=== PATIENT | female | born 1975 | race Caucasian/White ===

== ENCOUNTER 2025-03-11 09:33 | Inpatient (IN) ==
--- NOTE | 2025-03-11 10:11 | Emergency Department Note ---
Impression & Plan Rectal mass, Anemia, Lymphadenopathy, Abdominal pain ED Provider Note NAME: ALYSSA CONRAD AGE: 50 SEX: F : 1975 ARRIVES VIA: Walk-In INFORMANT: Patient ED PROVIDER(S): Nahid Welsh DO CHIEF COMPLAINT: Abdominal pain HPI: Patient is a 50-year-old female with no significant past medical history who presents to the ER for lower abdominal pain and fullness as well as diarrhea. Symptoms have been present since October. They have been gradually getting worse. She denies any headache or change in vision. No chest pain or shortness of breath. No nausea, vomiting, or diarrhea. She had CT of the abdomen pelvis and chest performed as an outpatient and was referred in for an expedient workup by Dr. Mayo. ADDITIONAL HISTORY OBTAINED: Per HPI Chronic Medical/Social Conditions Affecting Care: Per HPI PAST MEDICAL HISTORY:See Below PAST SURGICAL HISTORY:See Below FAMILY HISTORY:See Below SOCIAL HISTORY:See Below HOME MEDICATIONS:See Below ALLERGIES:See Below VITALS:See Below PHYSICAL EXAMINATION: GENERAL: Sitting up in bed, alert, well appearing, well nourished, no distress, non-toxic EYE EXAM: normal conjunctiva. OROPHARYNX: no exudate, no erythema, lips, buccal mucosa, and tongue normal and mucous membranes are moist NECK: supple, no nuchal rigidity, no adenopathy, non-tender LUNGS: Clear to auscultation. Normal chest wall mechanics HEART: no murmurs, S1 normal and S2 normal ABDOMEN: abdomen soft, non-tender, normo-active bowel sounds, patient bowl firm mass in left lower quadrant, no rebound or guarding. UPPER EXTREMITIES: upper extremities are grossly normal. LOWER EXTREMITIES: No pitting edema. NEURO EXAM: Normal sensorium, cranial nerves II-XII grossly intact, normal speech, no gross weakness of arms, no gross weakness of legs. MEDICAL DECISION MAKING: Patient is a 50-year-old female who presents to the ER for the above-stated complaint. IV was established and blood work was obtained. Labs show mild leukocytosis of 11.9 thousand. Significant anemia at 7.7 which is likely secondary to the rectal mass likely causing a GI bleed although rectal was not performed. BMP with LFTs bilirubin and lipase is unremarkable. Patient was typed and crossed for 2 units with the anemia. Upon arrival external records were reviewed which included CTs performed here at [facility] as an outpatient which showed a large rectal mass pushing on the ureters and bladder. Discussed case with general surgery as well as gastroenterology and they recommended admission. Discussed case with the hospitalist Dr. Leiva for further evaluation management treatment. Consults/Care Managements Discussions: Per MDM Triage Nursing notes reviewed. Limited review of prior medical records performed Vital Signs: reviewed and remarkable for no significant abnormalities Differential diagnosis: Differential diagnoses includes but is not limited to gastritis, peptic ulcer disease, GERD, gallbladder disease, pancreatitis, small bowel obstruction, appendicitis, diverticulitis, hernia, urinary tract infection, torsion, perforation, trauma, infectious. ER treatment provided: See below Diagnostics interpreted by me include EKG and cardiac monitoring as listed below: -Cardiac Monitoring: An order was placed for continuous cardiac monitoring. The monitor shows a rate of 70 with sinus rhythm. -ECG: none -Laboratory studies:Interpreted by me as stated above in MDM and shown below. Imaging studies: Xrays: As interpreted by me:none CTs show: none Procedures:none Critical Care: None Past Med/Surg History Problem List (Updated 03/11/25 @ 13:51 by Nahid Welsh DO) Abdominal pain (Acute) Lymphadenopathy (Acute) Anemia (Acute) Anemia Metastasis to lung Rectal mass (Acute) Surgical History H/O wisdom tooth extraction Family History Grandmother (Maternal) Breast cancer Diabetes Grandfather (Paternal) Colorectal cancer Uncle Prostate cancer Father Diabetes Kidney disease Denies family history of Ovarian cancer Myocardial infarction Stroke Social History Smoking Status: Never smoker Second Hand Exposure: Yes; Do You Dip or Chew Tobacco: No; Hx Alcohol Use: Yes Alcohol Intake Frequency: Monthly or Less Hx Substance Use: No Preferred Language: Jamaican Communication Ability: Effective Visual Impairment: No Limitations Hearing Ability: Normal marital status: Current Living Situation: Spouse current occupational status: employed current occupation: freelancer How many Children do You have: 0 Feels Safe at Home: Yes Childhood Exposure to Second-Hand Smoke: Yes caffeine: Yes Dental Care, Regularly: No Physical Activity Frequency: Daily Seatbelt Use: always Sunscreen Use: Yes Do you think of yourself as: straight/heterosexual Allergies Allergies Allergy/AdvReac Type Severity Reaction Status Date / Time No Known Drug Allergies Allergy Verified 03/11/25 12:04 Home Meds Home Medications Medication Instructions Recorded Confirmed cyanocobalamin (vitamin B-12) 1,000 mcg PO DAILY 03/11/25 03/11/25 1,000 mcg tablet (Vitamin B-12) omega 8-zcg-jsi-fish oil 910 1 cap PO DAILY 03/11/25 03/11/25 mg-1,400 mg capsule (White Owl-3 Fish Oil) psyllium husk 3.4 gram/5.4 gram 1 tbsp PO DAILY 03/11/25 03/11/25 oral powder (Metamucil) Results & Data (ED) Vital Signs Vital Signs - 24 hr 03/11/25 09:34 03/11/25 09:55 03/11/25 10:10 Temperature 37.1 C Temperature Source Temporal Artery Scan Pulse Rate 96 H 73 75 Pulse Rate [Apical] Pulse Rhythm Regular Pulse Strength Normal Respiratory Rate 18 Respiratory Effort / Characteristics Non-Labored Respiratory Depth Normal Respiratory Pattern Regular Blood Pressure 147/96 H Blood Pressure [Right Arm] Blood Pressure Mean 113 Blood Pressure Mean [Right Arm] Blood Pressure Position Sitting Blood Pressure Position [Right Arm] Pulse Oximetry 100 100 Oxygen Delivery Method Room Air Room Air Sepsis Recent Fever Within 48 Hours No Sepsis New/Unexplained Change in Mental Status N/A Sepsis Action Taken by Nursing No Action Required 03/11/25 11:33 03/11/25 13:00 Temperature Temperature Source Pulse Rate Pulse Rate [Apical] 86 73 Pulse Rhythm Pulse Strength Respiratory Rate 16 20 Respiratory Effort / Characteristics Non-Labored Spontaneous Respiratory Depth Normal Respiratory Pattern Blood Pressure Blood Pressure [Right Arm] 138/103 H 141/83 H Blood Pressure Mean Blood Pressure Mean [Right Arm] 114 102 Blood Pressure Position Blood Pressure Position [Right Arm] Semi-fowlers Pulse Oximetry 100 99 Oxygen Delivery Method Room Air Room Air Sepsis Recent Fever Within 48 Hours Sepsis New/Unexplained Change in Mental Status Sepsis Action Taken by Nursing Laboratory Data 03/11/25 10:01 03/11/25 10:01 Lab Results 03/11/25 03/11/25 03/11/25 Range/Units 10:01 11:15 12:33 WBC 11.98 H (4.8-10.8) K/ul RBC 3.98 L (4.20-5.40) M/uL Hgb 7.7 L (12.0-16.0) g/dl Hct 26.3 L (37.0-47.0) % MCV 66.1 L (80.0-100.0) fL MCH 19.3 L (25.0-34.0) pg MCHC 29.3 L (32.0-36.0) g/dL RDW Std Deviation 45.3 (36.4-46.3) fL RDW Coeff of Marilyn 19.3 H (11.5-14.5) % Plt Count 557 H (130-400) K/uL MPV 8.4 L (9.4-12.4) fL Immature Gran % (Auto) 0.5 % Neut % (Auto) 82.2 % Lymph % (Auto) 8.6 % [place] % (Auto) 7.8 % Eos % (Auto) 0.3 % Baso % (Auto) 0.6 % Neut # (Auto) 9.86 H (1.40-6.50) K/uL Lymph # (Auto) 1.03 L (1.20-3.40) K/uL [place] # (Auto) 0.93 H (0.11-0.59) K/uL Eos # (Auto) 0.03 (0.00-0.50) K/uL Baso # (Auto) 0.07 (0.00-0.20) K/uL Immature Gran # (Auto) 0.06 (0.01-0.20) K/uL Microcytosis Present Ovalocytes 1+ Sodium 136 (136-145) mmol/L Potassium 3.5 (3.5-5.1) mmol/L Chloride 104 (98-107) mmol/L Carbon Dioxide 27 (21-32) mmol/L Anion Gap 5 (3-11) BUN 8 (6-23) mg/dl Creatinine 0.62 (0.6-1.2) mg/dl Est Cr Clr Drug Dosing 144.6 ml/min eGFR 109.78 BUN/Creatinine Ratio 12.9 (10-20) Glucose 97 (70-99(Fasting)) mg/dl Calcium 8.1 L (8.6-10.3) mg/dl Total Bilirubin 0.4 (0.2-1.0) mg/dl AST 9 L (13-39) U/L ALT 6 L (7-52) U/L Alkaline Phosphatase 76 (34-104) U/L Total Protein 5.9 L (6.0-8.3) gm/dl Albumin 2.4 L (3.4-5.0) gm/dl Globulin 3.5 (2.5-4.0) gm/dl Albumin/Globulin Ratio 0.7 L (0.9-2) Lipase 3 L (11-82) U/L Blood Type A Negative Blood Type Recheck A Negative Antibody Screen NEGATIVE Crossmatch See Detail Administered Medications Discontinued Medications Sodium Chloride (Nss) 1,000 mls @ 999 mls/hr IV .Q1H1M ONE Stop: 03/11/25 11:58 Last Infusion: 03/11/25 13:10 Dose: Infused Documented By: Admin: 03/11/25 11:26 Dose: 999 mls/hr Documented By: TEJAS Discharge Plan Visit Data Chief Complaint: Abnormal Labs/Diagnostic Testing Stated Complaint: ABD MASS, ABN CT ED Provider: Nahid Welsh Discharge Problem: Rectal mass, Anemia, Lymphadenopathy, Abdominal pain Forms Stand Alone Forms: [employer] Prescriptions Prescriptions: No Action cyanocobalamin (vitamin B-12) [Vitamin B-12] 1,000 mcg Tablet 1,000 mcg PO DAILY White Owl-3 Fish Oil 910-1,400 mg Capsule 1 cap PO DAILY Metamucil 3.4 gram/5.4 gram Powder 1 tbsp PO DAILY Rx Instructions: mix into at least 8 oz of water or juice before administering Referrals Referrals: Billy Mayo DO [Primary Care Provider] - Discharge Problem: Anemia Qualifiers: Anemia type: unspecified type Qualified Code(s): D64.9 - Anemia, unspecified Abdominal pain Qualifiers: Abdominal location: unspecified location Qualified Code(s): R10.9 - Unspecified abdominal pain
[2025-03-11 10:19] LABS: Basophils # (auto) 0.07 K/uL (0.00-0.20); Basophils % (auto) 0.6 %; Eosinophils # (auto) 0.03 K/uL (0.00-0.50); Eosinophils % (auto) 0.3 %; Hematocrit (blood only) 26.3 % (37.0-47.0); Hemoglobin 7.7 g/dl (12.0-16.0); Immature Granulocytes # (auto) 0.06 K/uL (0.01-0.20); Immature Granulocytes % (auto) 0.5 %; Lymphocytes # (auto) 1.03 K/uL (1.20-3.40); Lymphocytes % (auto) 8.6 %; Mean Corpuscular Hemoglobin 19.3 pg (25.0-34.0); Mean Corpuscular Hgb Conc 29.3 g/dL (32.0-36.0); Mean Corpuscular Volume 66.1 fL (80.0-100.0); Monocytes # (auto) 0.93 K/uL (0.11-0.59); Monocytes % (auto) 7.8 %; Neutrophils # (auto) 9.86 K/uL (1.40-6.50); Neutrophils % (auto) 82.2 %; RDW Coefficient of Variation 19.3 % (11.5-14.5); RDW Standard Deviation 45.3 fL (36.4-46.3); Red Blood Count 3.98 M/uL (4.20-5.40); White Blood Count 11.98 K/ul (4.8-10.8)
[2025-03-11 10:39] LABS: Albumin Level 2.4 gm/dl (3.4-5.0); Bilirubin,Total 0.4 mg/dl (0.2-1.0); Calcium 8.1 mg/dl (8.6-10.3); Potassium 3.5 mmol/L (3.5-5.1)
[2025-03-11 10:45] LABS: Albumin Globulin Ratio 0.7 (0.9-2); BUN Creatinine Ratio 12.9 (10-20); Creatinine Clr Calc Pharmacy 144.6 ml/min; Globulin 3.5 gm/dl (2.5-4.0); Total Protein 5.9 gm/dl (6.0-8.3)
[2025-03-11] MEDS ORDERED: SODIUM CHLORIDE 0.9% 100 ML IV PRN (10:55)
[2025-03-11 11:18] LABS: Mean Platelet Volume 8.4 fL (9.4-12.4); Microcytosis Present; Ovalocytes 1+; Platelet Count 557 K/uL (130-400)
[2025-03-11] MEDS: SODIUM CHLORIDE 0.9% 1,000 ML IV ONE (11:26)
--- NOTE | 2025-03-11 11:29 | History & Physical Report ---
Date of Service March 11, 2025 Assessment & Plan (1) Rectal mass: (2) Anemia: Plan 50-year-old female with rectal mass with mass effect in her abdomen and pelvis with concern for metastasis. Mass measures 14 x 13 x 15 there is mild iliac chain lymphadenopathy. #Rectal mass, I personally discussed the case with GI medicine. Plans for a flex sig on 03/12. Patient will be CEA drawn in the morning. Parenteral nausea medication and pain medication will be applied #Anemia, will check iron studies in the morning certainly will transfuse if her hemoglobin drops further likely source is GI blood loss as she is markedly microcytic. Will check a TSH. With the rectal bleeding chemoprophylaxis is contraindicated at this point in time we will use SCDs History of Present Illness Primary Care Provider: Billy Mayo DO 50-year-old female has been worked up as an outpatient by her primary care physician for concerns of anemia and abdominal mass. There is some nodule seen on CT scan of the chest with possible origin being rectal carcinoma with metastasis. CT imaging performed 09 March shows rectal mass causing mass effect of the uterus urinary bladder and distal ureters causing mild bilateral hydronephrosis. Patient has intact renal function but a tissue diagnosis has not yet been made. Dr. Mayo her primary care physician has been in touch with [facility] for outpatient referral once tissue diagnosis is made Emergency Department patient is stable she is markedly anemic with hemoglobin 7.7 he has some fullness and abdominal pain Allergies Allergy/AdvReac Type Severity Reaction Status Date / Time No Known Drug Allergies Allergy Verified 02/25/25 13:09 Home Medications Medication Instructions Recorded Confirmed Type mecobalamin (vitamin B12) PO DAILY 02/25/25 02/25/25 History omega-3 fatty acids [[place]-3] PO DAILY 02/25/25 02/25/25 History psyllium [Metamucil (sugar)] PO DAILY 02/25/25 02/25/25 History Past Med/Surg History Problem List (Updated 03/11/25 @ 11:27 by Billy Leiva MD) Anemia Metastasis to lung Rectal mass Surgical History (Updated 02/25/25 @ 13:12 by Luz Marina Chavez) H/O wisdom tooth extraction Family History (Updated 02/25/25 @ 13:14 by Luz Marina Chavez) Grandmother (Maternal) Breast cancer Diabetes Grandfather (Paternal) Colorectal cancer Uncle Prostate cancer Father Diabetes Kidney disease Denies family history of Ovarian cancer Myocardial infarction Stroke Social History (Updated 02/25/25 @ 13:16 by Luz Marina Chavez) Smoking Status: Never smoker Second Hand Exposure: Yes; Do You Dip or Chew Tobacco: No; Hx Alcohol Use: Yes Alcohol Intake Frequency: Monthly or Less Hx Substance Use: No Preferred Language: Armenian Communication Ability: Effective Visual Impairment: No Limitations Hearing Ability: Normal marital status: Current Living Situation: Spouse current occupational status: employed current occupation: freelancer How many Children do You have: 0 Feels Safe at Home: Yes Childhood Exposure to Second-Hand Smoke: Yes caffeine: Yes Dental Care, Regularly: No Physical Activity Frequency: Daily Seatbelt Use: always Sunscreen Use: Yes Do you think of yourself as: straight/heterosexual Review of Systems Review of Systems: Mild distress and fatigue no headache, no visual changes no speech or swallowing issues no chest pain, pressure or palpitations no shortness of breath, cough or wheezes lower central abdominal pain, mild weight loss, no nausea or vomiting, changes in bowel habits, less freq some constipation no dysuria, hematuria or frequency no focal joint pain or swelling no back pain, CVA tenderness or radicular pain no bruising, bleeding or rashes no focal signs of weakness or numbness or altered sensation no complaints of anxiety or depression.. Physical Exam Physical Exam: The patient appeared well nourished and normally developed. Vital signs as documented. Head exam is normocephalic atraumatic Lungs are clear to auscultation, no focal loss of breath sounds Cardiac exam, Rhythm is regular.. No murmurs, rubs or gallops. Abdominal exam reveals normal bowel sounds, soft minor tenderness lower abd Extremities are nonedematous and both pedal pulses are present Neurologic exam is alert and oriented, no focal loss of strength or sensation Skin is without bruises or rashes Psychologically is without concerns for anxiety or depression.. Results & Data Results & Data Vital Signs (Past 12 Hours) Vital Signs Temp Pulse Resp BP Pulse Ox O2 Del Method 03/11/25 10:10 75 03/11/25 09:55 73 100 Room Air 03/11/25 09:34 98.8 F 96 H 18 147/96 H 100 Room Air Laboratory Results Reviewed CBC reviewed chemistry reviewed outpatient CT scan of abdomen pelvis and chest Code Status & VTE Plan VTE Prophylaxis Plan VTE Prophylaxis will be ordered: Yes PG Care Time/CCT Total # of Minutes Spent Total Time Spent with Patient: Total time spent is greater than 50% in coordination of care (as documented) at patient's floor/unit and/or counseling patient: Coding Level of Care Code 69985 INT INP/OBS CARE 2/55MIN Diagnoses Rectal mass K62.89 Anemia D64.9
--- NOTE | 2025-03-11 13:13 | Gastrointestinal Consultation ---
Date of Consultation March 11, 2025 Assessment & Plan (1) Rectal mass: (2) Anemia: Plan -Clear liquid diet today -Supportive care for anemia per primary team -Continue to monitor H/H -Keep NPO after midnight with exception of bowel prep as ordered -Plan for colonoscopy on 03/12/25 to further assess rectal mass -Will likely need surgical evaluation/potential oncology eval as well Supervising Physician Co-Signing Physician Notes I examined the patient and reviewed patient's chart , laboratory data and imaging studies. I agree with with assessment and plan of care as suggested by advanced practice provider. CT scan is suggestive of metastatic rectal cancer. The patient is scheduled for colonoscopy tomorrow. History of Present Illness Reason for Consultation: Rectal mass History of Present Illness Patient is a 50 yo female without significant PMH who presented to her PCP on 02/25/25 for evaluation of an abrupt change in her bowel habits. She notes that beginning in October, she developed an abrupt onset of constipation. She notes she previously had been having 1-2 bowel movements daily but suddenly was unable to evacuate her bowels. She notes loose stool and mucous but no sensation of relief and complete defecation. She notes small pebble-like stools on occasion as well. She felt as though she had period cramps with lower abdominal discomfort, and that even sitting up just put too much pressure on her abdomen. She is a vegetarian. She takes Fiber supplementation with Metamucil daily. She has adequate water intake. She notes she doesn't check her weight, but feels her clothes were fitting differently. She does have a grandfather who diet of colon cancer in his early 70s. No obvious rectal bleeding. She underwent a CT abdomen/pelvis as an outpatient that led to the following findings: IMPRESSION: 1. Large rectal mass consistent with primary rectal malignancy. 2. Metastatic abdominal and pelvic lymphadenopathy. Small lung base pulmonary nodules could represent early pulmonary metastatic disease. 3. The rectal mass causes mass effect on the uterus, urinary bladder, and distal ureters, causing mild bilateral hydronephrosis. 4. Otherwise as described. A CT of the chest was performed today in follow-up: IMPRESSION: 1. No acute intrathoracic abnormality. 2. Scattered bilateral solid pulmonary nodules measure up to 4 mm. Follow-up guidelines are below. 3. No lymphadenopathy. She was encouraged to present to the ED to expedite her work-up/tissue diagnosis and it appears she is receiving supportive care for her anemia as well. Current H/H 7.7/26.3. MCV 66. Plt 557. Allergies Allergy/AdvReac Type Severity Reaction Status Date / Time No Known Drug Allergies Allergy Verified 03/11/25 12:04 Home Medications Medication Instructions Recorded Confirmed Type cyanocobalamin (vitamin B-12) 1,000 mcg PO DAILY 03/11/25 03/11/25 History 1,000 mcg tablet (Vitamin B-12) omega 2-oci-itc-fish oil 910 1 cap PO DAILY 03/11/25 03/11/25 History mg-1,400 mg capsule ([place]-3 Fish Oil) psyllium husk 3.4 gram/5.4 gram 1 tbsp PO DAILY 03/11/25 03/11/25 History oral powder (Metamucil) Patient History Surgical History H/O wisdom tooth extraction Family History Grandmother (Maternal) Breast cancer Diabetes Grandfather (Paternal) Colorectal cancer Uncle Prostate cancer Father Diabetes Kidney disease Denies family history of Ovarian cancer Myocardial infarction Stroke Social History Smoking Status: Never smoker Second Hand Exposure: Yes; Do You Dip or Chew Tobacco: No; Hx Alcohol Use: Yes Alcohol Intake Frequency: Monthly or Less Hx Substance Use: No Preferred Language: Danish Communication Ability: Effective Visual Impairment: No Limitations Hearing Ability: Normal marital status: Current Living Situation: Spouse current occupational status: employed current occupation: [employer] How many Children do You have: 0 Feels Safe at Home: Yes Childhood Exposure to Second-Hand Smoke: Yes caffeine: Yes Dental Care, Regularly: No Physical Activity Frequency: Daily Seatbelt Use: always Sunscreen Use: Yes Do you think of yourself as: straight/heterosexual Review of Systems Constitutional: no fever and no chills Respiratory: no cough and no dyspnea Cardiovascular: no chest pain Gastrointestinal: + abdominal pain, + change in bowel habi ts and + constipation Physical Exam Constitutional: well developed Respiratory: normal respiratory effort Cardiovascular: Rate/Rhythm: regular rate Gastrointestinal (Abdomen): normal bowel sounds, soft, nontender, no hepatosplenomegaly Psychiatric: Orientation: alert and oriented x 3 Results & Data Vital Signs (Past 12 Hours) Vital Signs Temp Pulse Resp BP Pulse Ox O2 Del Method 03/11/25 10:10 75 03/11/25 09:55 73 100 Room Air 03/11/25 09:34 37.1 C 96 H 18 147/96 H 100 Room Air PG Care Time/CCT Total # of Minutes Spent Total Time Spent with Patient: Total time spent is greater than 50% in coordination of care (as documented) at patient's floor/unit and/or counseling patient: Coding Level of Care Code 12574 IN/OBS CONSULT LVL 4,60M Diagnoses Rectal mass K62.89 Anemia D64.9
[2025-03-11] MEDS ORDERED: MoRPHine SULFATE 2 MG/ML CARP IV PRN (14:20)
[2025-03-11] MEDS ORDERED: ONDANSETRON INJ 2 MG/ML 2 ML VIAL IV PRN (14:20)
[2025-03-11] MEDS: MoRPHine SULFATE 4 MG/ML 1 ML CARP\\VIAL IV PRN (14:32)
[2025-03-11] MEDS: LAVAGE SOLUTION 4000ML PO SCH (18:10)
[2025-03-11 18:51] LABS: Appearance Urine Clear (Clear); Bilirubin Urine Negative (Negative); Blood Urine Negative (Negative); Color Urine Yellow; Glucose Urine UA Negative (Negative); Ketones Urine Negative (Negative); Leukocyte Esterase Urine Negative (Negative); Nitrite Urine Negative (Negative); Protein Urine Negative (Negative); Specific Gravity Urine 1.021 (1.000-1.030); Urobilinogen Urine Negative (Negative); pH Urine 6.5 (4.5-7.5)
[2025-03-12 06:27] LABS: Hematocrit (blood only) 25.1 % (37.0-47.0); Hemoglobin 7.5 g/dl (12.0-16.0); Mean Corpuscular Hemoglobin 19.6 pg (25.0-34.0); Mean Corpuscular Hgb Conc 29.9 g/dL (32.0-36.0); Mean Corpuscular Volume 65.7 fL (80.0-100.0); Mean Platelet Volume 8.5 fL (9.4-12.4); Platelet Count 537 K/uL (130-400); RDW Standard Deviation 44.7 fL (36.4-46.3); Red Blood Count 3.82 M/uL (4.20-5.40); White Blood Count 15.01 K/ul (4.8-10.8)
[2025-03-12 07:04] LABS: Calcium 7.7 mg/dl (8.6-10.3); Potassium 3.4 mmol/L (3.5-5.1)
[2025-03-12 07:10] LABS: Creatinine Clr Calc Pharmacy 128.1 ml/min
--- NOTE | 2025-03-12 08:10 | Anesthesiology Consultation ---
Date of Service March 12, 2025 Assessment & Plan (1) Encounter for pre-operative examination: Chart Review Chart Review: Acceptable Risk for Surgery, Patient NOT seen in Pre Admission Testing and order entry initiated Consults Requested none Proposed Anesthesia Anesthesia Type: MAC History Surgery Operation Date: 03/12/25 16:30 Proposed Procedures p Colonoscopy Dr. Gio Powers MD Height/Weight Height: 6 ft Weight: 96.7 kg Allergies Allergy/AdvReac Type Severity Reaction Status Date / Time No Known Drug Allergies Allergy Verified 03/11/25 12:04 Medications Home Medications Medication Instructions Recorded Confirmed Last Taken cyanocobalamin (vitamin B-12) 1,000 mcg PO DAILY 03/11/25 03/11/25 03/10/25 1,000 mcg tablet (Vitamin B-12) omega 8-irq-rbx-fish oil 910 1 cap PO DAILY 03/11/25 03/11/25 03/10/25 mg-1,400 mg capsule ([place]-3 Fish Oil) psyllium husk 3.4 gram/5.4 gram 1 tbsp PO DAILY 03/11/25 03/11/25 03/10/25 oral powder (Metamucil) Active Medications Generic Name Dose Route Start Last Admin Trade Name Freq PRN Reason Stop Dose Admin Morphine Sulfate 4 mg 03/11/25 14:20 03/12/25 00:58 Morphine Sulfate 4 Mg/Ml 1 Ml Carp\Vial IV 03/25/25 14:19 4 mg Q4 PRN Administration Severe Pain (Scale 7, 8, 9,10) Past Family History Family History Grandmother (Maternal) Breast cancer Diabetes Grandfather (Paternal) Colorectal cancer Uncle Prostate cancer Father Diabetes Kidney disease Denies family history of Ovarian cancer Myocardial infarction Stroke Past Surgical History Surgical History H/O wisdom tooth extraction Social History Smoking Status: Never smoker Do You Dip or Chew Tobacco: No Hx Alcohol Use: No Hx Substance Use: No Physical Exam Vital Signs Last Vital Signs Temp 36.6 C 03/12/25 07:26 Pulse 71 03/12/25 07:26 Resp 14 03/12/25 07:26 BP 122/77 03/12/25 07:26 Pulse Ox 98 03/12/25 07:26 O2 Del Method Room Air 03/12/25 07:26 Testing Laboratory Results 03/12/25 05:54 03/12/25 05:54 Urine Color Yellow 03/11/25 18:15 Urine Appearance Clear (Clear) 03/11/25 18:15 Urine pH 6.5 (4.5-7.5) 03/11/25 18:15 Ur Specific Spearman 1.021 (1.000-1.030) 03/11/25 18:15 Urine Protein Negative (Negative) 03/11/25 18:15 Urine Glucose (UA) Negative (Negative) 03/11/25 18:15 Urine Ketones Negative (Negative) 03/11/25 18:15 Urine Nitrite Negative (Negative) 03/11/25 18:15 Ur Leukocyte Esterase Negative (Negative) 03/11/25 18:15 Blood Type A Negative 03/11/25 11:15 Antibody Screen NEGATIVE 03/11/25 11:15
--- NOTE | 2025-03-12 08:35 | History & Physical Bridge Note ---
Date of Service March 12, 2025 History & Physical Bridge Note I have examined the patient, reviewed the History & Physical and in the interval since the performance of the History & Physical I have noted the following changes of clinical significance: no changes noted Patient notes she is moving liquid brown to yellow stool. No form or solid. Keep NPO & Proceed with Colonoscopy today for biopsies. Supervising Physician Co-Signing Physician Notes I examined the patient and reviewed patient's chart , laboratory data and imaging studies. I agree with with assessment and plan of care as suggested by advanced practice provider
[2025-03-12] MEDS: SODIUM CHLORIDE 0.9% 500 ML IV SCH (09:01)
--- NOTE | 2025-03-12 10:06 | GI REPORT ---
[facility] Patient: ALYSSA CONRAD : 1975 Sex at : Female Age: 50 Years Procedure: Colonoscopy Date: 03/12/2025 Attending Physician: Carlos Manuel Powers MD Referring MD: Referred Self; Wellington Song DO Indications: - Rectal mass on CT scan Medications: - Monitored Anesthesia Care Complications: - No immediate complications. Estimated Blood Loss: - Estimated blood loss: None. Procedure: - The pediatric colonoscope was introduced through the anus and advanced to the cecum, identified by appendiceal orifice and ileocecal valve. - The colonoscopy was somewhat difficult due to significant looping. Successful completion of the procedure was aided by applying abdominal pressure and straightening and shortening the scope to obtain bowel loop reduction. - The patient tolerated the procedure well. - The quality of the bowel preparation was adequate. - Parts of the cecum not well-visualized due to moderate amount of solid stool. Findings: - The digital rectal exam revealed a firm rectal mass palpated 7.0 cm from the anal verge. - An infiltrative non-obstructing large mass was found in the rectum and in the mid rectum. The mass was partially circumferential (involving two-thirds of the lumen circumference). The mass measured 12 cm (in length). Biopsies were taken with a cold forceps for histology. Multiple biopsies were obtained. - The exam was otherwise without abnormality. Impression: - Rectal mass 7.0 cm from the anal verge. - Malignant tumor in the rectum and in the mid rectum. Biopsied. - Multiple biopsies were obtained. - The examination was otherwise normal. Recommendation: - Await pathology results. - Medical oncology consultation Procedure Code(s): - 01072, Colonoscopy, flexible; with biopsy, single or multiple Diagnosis Code(s): - K62.89, Other specified diseases of anus and rectum - C20, Malignant neoplasm of rectum CPT(R) - 2023 copyright [employer]. All Rights Reserved. The CPT codes, CCI edits and ICD codes generated are intended as suggestions and were generated based on input data. These codes are preliminary and upon heel blacker review may be revised to meet current compliance and payer requirements. The provider is responsible for the final determination of appropriate codes, and modifiers. Carlos Manuel Powers M.D. , This document has been electronically signed. Note Initiated:03/12/2025 Note Completed:03/12/2025 10:05 AM \\[email or web address]\Results\[email or web address]\[id number]
[2025-03-12 10:39] VITALS: O2SAT 99
--- NOTE | 2025-03-12 10:45 | Anesthesiology Progress Note ---
Date of Service March 12, 2025 Anesthesia Post Procedure Vital Signs Vital Signs: Temp Pulse Pulse Pulse Pulse Resp BP 03/12/25 10:35 36.3 C L 64 14 03/12/25 10:33 60 16 117/65 03/12/25 10:20 60 16 124/76 03/12/25 10:02 78 16 127/88 03/12/25 08:45 36.7 C 87 18 141/80 H 03/12/25 07:26 36.6 C 71 14 122/77 03/12/25 07:15 03/11/25 22:21 37.1 C 71 16 03/11/25 15:25 36.9 C 98 H 16 03/11/25 15:05 76 16 03/11/25 15:05 77 03/11/25 14:31 72 16 03/11/25 13:54 69 03/11/25 13:00 73 20 03/11/25 11:33 86 16 BP Pulse Ox O2 Del Method 03/12/25 10:35 131/85 99 Room Air 03/12/25 10:33 98 Room Air 03/12/25 10:20 98 Room Air 03/12/25 10:02 97 Room Air 03/12/25 08:45 98 Room Air 03/12/25 07:26 98 Room Air 03/12/25 07:15 Room Air 03/11/25 22:21 117/73 98 Room Air 03/11/25 15:25 130/80 100 Room Air 03/11/25 15:05 139/79 100 Room Air 03/11/25 15:05 03/11/25 14:31 151/89 H 100 Room Air 03/11/25 13:54 03/11/25 13:00 141/83 H 99 Room Air 03/11/25 11:33 138/103 H 100 Room Air Pain Intensity Abdomen: Pain Intensity: 6 Transfer of Care Handoff Completed per policy Notes Mental Status: alert / awake / arousable and participated in evaluation Patient Amnestic to Procedure: Yes Nausea / Vomiting: adequately controlled Pain: adequately controlled Airway Patency, RR, SpO2: stable & adequate BP & HR: stable & adequate Hydration State: stable & adequate Anesthetic Complications: no major complications apparent
[2025-03-12] MEDS: POTASSIUM CHLORIDE 20 MEQ/15 ML UDC PO SCH (11:21)
[2025-03-12] MEDS: TAMSULOSIN HCL 0.4 MG CAP PO ONE (11:21)
[2025-03-12 15:51] VITALS: RESP 16; TEMP 97.5
--- NOTE | 2025-03-12 16:43 | Discharge Summary ---
Discharge Summary Date of Service March 12, 2025 Principal Dx & Hospital Course #1 = Principal Diagnosis (1) Rectal mass: she will f/u with medical oncology and radiation oncology and likely need to f/u with surgery she's found to has hydronephrosis, started on flomax and urinary retention improved (2) Anemia: (3) Lung nodule seen on imaging study: she need repeat CT chest in 3-6 months Plan 50-year-old female with rectal mass with mass effect in her abdomen and pelvis with concern for metastasis. Mass measures 14 x 13 x 15 there is mild iliac chain lymphadenopathy. #Rectal mass, I personally discussed the case with GI medicine. Plans for a flex sig on 03/12. Patient will be CEA drawn in the morning. Parenteral nausea medication and pain medication will be applied #Anemia, will check iron studies in the morning certainly will transfuse if her hemoglobin drops further likely source is GI blood loss as she is markedly microcytic. Will check a TSH. With the rectal bleeding chemoprophylaxis is contraindicated at this point in time we will use SCDs Admission HPI Per Admitting Provider 50-year-old female has been worked up as an outpatient by her primary care physician for concerns of anemia and abdominal mass. There is some nodule seen on CT scan of the chest with possible origin being rectal carcinoma with metastasis. CT imaging performed 09 March shows rectal mass causing mass effect of the uterus urinary bladder and distal ureters causing mild bilateral hydronephrosis. Patient has intact renal function but a tissue diagnosis has not yet been made. Dr. Mayo her primary care physician has been in touch with [facility] for outpatient referral once tissue diagnosis is made Emergency Department patient is stable she is markedly anemic with hemoglobin 7.7 he has some fullness and abdominal pain Hospital Course She s/p colonoscpy on 03/12/2025 and has sample taken, she's admitted to urinary retention; started on flomax and retention improved she's tolerate lunch and fine, no abdominal pain, she has WBC of 14-15, we discussed the finding, she's mentioned mild suprapubic abdominal pain she was prescribed augmentin and she will need repeat CBC and BMP in 4-5 days Discharge Exam VITALS: Reviewed. WEIGHT/BMI reviewed. GEN: Healthy appearing, well-developed, NAD. PSYCH: Good Judgment. AOx3. Normal memory, mood, and affect. HEENT -Head: NC/AT; NECK: Supple, with no masses. CV: RRR, no m/r/g. LUNGS: CTAB, no w/r/c. ABD: Soft, NT/ND, NBS, no masses or organomegaly. no ascites; : no CVA tenderness MSK: No deformities, Normal gait. EXT: No clubbing, cyanosis, or edema. NEURO: AAox3 Discharge Plan Discharge Items Patient Disposition: Home - Self-Care Reason For Visit: ANEMIA, RECTAL MASS Discharge Diagnosis: rectal mass, leukocytosis, retention Condition on Discharge: Fair Health Concerns: you will need to repeat blood work CBC and BMP on Sunday Goals: make appointment with medical oncology to evaluate treatment option for rectal mass you need surveillance imaging for lung nodules Activity: Per Instructions section Lifting: Gradually increase as tolerated Non-emergency contact: Primary Care Provider Call non-emergency contact if: your symptoms worsen, your pain is unusual for you and you have a fever Follow-up/Referrals: Billy Mayo DO [Primary Care Provider] - Diet: Regular Addtl Attending Provider Instructions: you has leukocytosis of 14-15 and that can be a sign of infection. you will be on augmentin and flagyl for 7 days in addition, the mass in the rectal region is compressing on your bladder. if you has ongoing difficulty emptying your bladder, you will need to follow up with urology you can remained on flomax 0.4mg to address the retention Pending Studies at Discharge: Yes Studies:: repeat blood work (CBC and BMP) Stand-Alone Forms: My [facility] [employer], Smoking Cessation Medications and DC Order Prescriptions: New tamsulosin [Flomax] 0.4 mg capsule 0.4 mg PO DAILY 30 Days Qty: 30 0RF amoxicillin-pot clavulanate [Augmentin] 500-125 mg tablet 1 tab PO BID 7 Days Qty: 14 0RF Continued cyanocobalamin (vitamin B-12) [Vitamin B-12] 1,000 mcg Tablet 1,000 mcg PO DAILY Metamucil 3.4 gram/5.4 gram Powder 1 tbsp PO DAILY Rx Instructions: mix into at least 8 oz of water or juice before administering [place]-3 Fish Oil 910-1,400 mg Capsule 1 cap PO DAILY Discharge Orders: Discharge Order (Routine); Ordered 03/12/25 Ordered By: Wellington Samaniego/Other Patient Handouts: Resources for People with Cancer, Cancer Overview Admission Data Admit Date/Time: 03/11/25 11:24 Attending Provider: Wellington Song Admit Provider: Billy Leiva Primary Care Provider: Billy Mayo Other Providers: Alfred Barnd; Billy Leiva; Abby David Hospital Stay Data Consultations 03/11/25 10:12 Consult General Surgery Stat 03/11/25 10:55 ED Decision to Admit Stat 03/11/25 14:20 Consult Gastroenterology Routine Procedures Performed Operation Date: 03/12/25 16:30 Actual Procedures p Colonoscopy Biopsy Cytology - Carlos Manuel Powers MD Pending Results Patient Have Any Pending Studies at Discharge: Yes Discharge Instructions Given to Patient (Per Discharging Provider) you has leukocytosis of 14-15 and that can be a sign of infection. you will be on augmentin and flagyl for 7 days in addition, the mass in the rectal region is compressing on your bladder. if you has ongoing difficulty emptying your bladder, you will need to follow up with urology you can remained on flomax 0.4mg to address the retention Total Time Total Time Spent Total Time Spent (In Minutes): 35 minutes Coding Level of Care Code 20464 INP/OBS DISCH >30 MIN Diagnoses Rectal mass K62.89 Anemia D64.9 Lung nodule seen on imaging study R91.1 Time Spent (min) 33
[2025-03-12 17:22] VITALS: BP 131/85; PULSE 71
== END 2025-03-12 17:40 | disposition home or self-care (01) | DRG 375 ==
LOC: ED 09:33 → SUATTDRO 11:24 → EDINP 11:24 → 3E 14:20